=== PATIENT | male | born 1950 | race Caucasian/White ===

== ENCOUNTER → 2020-09-07 | Outpatient (CLI) | payer MEDICARE ==
--- NOTE | 2020-09-08 08:34 | RAD ---
EXAM DESCRIPTION: Knee,Left 1 or 2 Views CLINICAL HISTORY: 70 years Male, knee pain COMPARISON: None. TECHNIQUE: 2 view radiograph of the left knee. IMPRESSION: No acute displaced fracture. No dislocation. Postoperative changes to the proximal tibia with no hardware complication such as loosening or fracture. Mild narrowing of the medial greater than lateral weightbearing knee compartment with mild subchondral sclerosis along the medially to plateau. No joint line osteophytosis. Mild patellofemoral arthrosis. Moderate patellar enthesophyte at the quadriceps tendon insertion. No knee joint effusion. No radiographically apparent soft tissue abnormality. Electronically signed by: Daniele Valenzuela MD 09/08/2020 8:33 AM [facility]
--- NOTE | 2020-09-08 08:38 | RAD ---
EXAM DESCRIPTION: Knee,Right 1 or 2 Views CLINICAL HISTORY: 70 years, Male, knee pain COMPARISON: None TECHNIQUE: Two views right knee FINDINGS: Two views right knee demonstrate osteopenia and modest degenerative changes. There is very subtle cupping of the medial margin medial tibial plateau suggesting possibly an old injury and acute fracture or hemarthrosis or joint effusion not apparent. The lateral joint compartment is more normal in appearance. The distal femur and patella and fibula are intact and modestly osteopenic. IMPRESSION: 1. Mild osteopenia and mild degenerative changes right knee without joint effusion. 2. Mild deformity and cupping of the medial tibial plateau at its medial margin suggesting possibly an old injury or impaction fracture with no acute fracture or hemarthrosis evident. Electronically signed by: Fabián Reed MD 09/08/2020 8:[address] [facility]
== END ==
LOC: RAD 15:18
PROVIDERS: ATTEND Nurse Practitioner Family
DX: M17.0 Bilateral primary osteoarthritis of knee (principal); M85.861 Other specified disorders of bone density and structure, right lower leg; M21.861 Other specified acquired deformities of right lower leg; Z98.890 Other specified postprocedural states; M25.862 Other specified joint disorders, left knee; M77.9 Enthesopathy, unspecified

== ENCOUNTER → 2020-09-28 | Outpatient (CLI) | payer MEDICARE ==
--- NOTE | 2020-09-28 09:10 | RAD ---
EXAM DESCRIPTION: Pelvis CLINICAL HISTORY: 70 years Male, HIP PAIN COMPARISON: None. FINDINGS: AP pelvis demonstrates advanced degenerative changes in the lower lumbar spine and moderately advanced degenerative change both hips with hypertrophic marginal osteophytes at the acetabular margins. Joint space maintained bilaterally without fracture or dislocation on the right or left. Generalized mild osteopenia. Superior and inferior pubic rami intact bilaterally with intact bony pelvic ring. IMPRESSION: Degenerative changes both hips. Electronically signed by: Fabián Reed MD 09/28/2020 9:09 AM [facility]
--- NOTE | 2020-09-28 09:11 | RAD ---
EXAM DESCRIPTION: Knee,Left Complete CLINICAL HISTORY: 70 years, Male, KNEE PAIN COMPARISON: Opposite right knee TECHNIQUE: Three views of the left knee FINDINGS: Three views left knee demonstrate a tibial intramedullary raulito in place with two anchoring screws through the proximal tibial metaphysis. Healed left fibular shaft fracture noted. Generalized osteopenia evident with preserved and knee joint. No acute fracture or dislocation or joint effusion. Hypertrophic changes along the anterior patella. IMPRESSION: 1. Osteopenia and mild degenerative changes without acute injury. 2. Healed fibular shaft fracture and previous internal fixation of the tibia with intramedullary raulito. Electronically signed by: Fabián Reed MD 09/28/2020 9:10 AM [facility]
--- NOTE | 2020-09-28 09:13 | RAD ---
EXAM DESCRIPTION: Knee,Right Complete CLINICAL HISTORY: 70 years, Male, KNEE PAIN COMPARISON: Opposite left knee TECHNIQUE: Four views of the right knee FINDINGS: Modest osteopenia present. Hypertrophic changes at the quadriceps tendon insertion and the anterior patella noted. Mild degenerative changes and marginal osteophyte formation evident elsewhere with preserved medial and lateral joint compartment. No fracture or dislocation seen. Vascular calcification of the popliteal artery evident. IMPRESSION: 1. Mild osteopenia and modest degenerative changes right knee with preserved joint space. Electronically signed by: Fabián Reed MD 09/28/2020 9:12 AM [facility]
== END ==
LOC: RAD 07:40
PROVIDERS: ATTEND Orthopaedic Surgery
DX: M16.0 Bilateral primary osteoarthritis of hip (principal); M17.0 Bilateral primary osteoarthritis of knee; M85.9 Disorder of bone density and structure, unspecified; Z98.890 Other specified postprocedural states; Z87.81 Personal history of (healed) traumatic fracture